=== PATIENT | female | born 1975 | race Asian ===

== ENCOUNTER 2023-04-05 10:05 | Outpatient (CLI) | payer OTHER ==
[2023-04-05] MEDS ORDERED: GADOTERATE MEGLUMINE 7.5 MMOL/15 ML VIAL IV ONE (10:21)
== END 2023-04-05 18:07 | disposition home or self-care (01) ==
LOC: SMI 10:05
PROVIDERS: ATTEND Psychiatry & Neurology Neurology with Special Qualifications in Child Neurology
DX: G93.81 Temporal sclerosis (principal); G40.909 Epilepsy, unspecified, not intractable, without status epilepticus
CPT/HCPCS: 70553; A9575